=== PATIENT | male | born 1995 | race Hispanic/Latino ===

== ENCOUNTER 2018-04-10 14:18 | Emergency (ER) | payer OTHER ==
[2018-04-10] MEDS ORDERED: DICYCLOMINE HCL 10 MG/ML 2ML AMP IM ONE (14:44)
[2018-04-10] MEDS ORDERED: ONDANSETRON ODT 4 MG TAB ONE (14:44)
== END 2018-04-10 15:14 | disposition home or self-care (01) ==
LOC: EDH 14:18
DX: R11.2 Nausea with vomiting, unspecified (principal); R10.9 Unspecified abdominal pain; Z87.891 Personal history of nicotine dependence
CPT/HCPCS: 96372; 99283; J0500